=== PATIENT | male | born 1970 | race Caucasian/White ===

== ENCOUNTER → 2020-10-18 | Outpatient (CLI) | payer OTHER ==
--- NOTE | 2020-10-18 13:44 | KCIC ---
Exam Date: 10/18/2020 8:40 AM MRI LEFT UPPER EXTREMITY JOINT WITHOUT CONTRAST Indication: Reason: LEFT ELBOW PAIN / Spl. Instructions: / History: Posterior left elbow pain. Proba ble workout injury.. TECHNIQUE: Routine multiplanar MR imaging of the elbow was performed without contrast. FINDINGS: The radial and ulnar collateral ligaments are intact. The lateral ulnar collateral ligament is intact . The common extensor and common flexor tendons are within normal limits. The biceps and brachialis t endons are within normal limits. Triceps tendon is normal. There is nonspecific subcutaneous edema ov erlying the olecranon. No loculated collection is seen. Visualized articular cartilage is within normal limits. Visualized muscles demonstrate normal signal and bulk. Bone marrow demonstrates normal signal on all sequences without evidence of acute fracture . The ulnar nerve is visualized and demonstrates normal position, size and signal intensity. The radial and median nerves are partially seen and appear normal as well. IMPRESSION: Nonspecific subcutaneous edema overlying the olecranon. Infection is not excluded. No loculated colle ction is seen to suggest olecranon bursitis. Intact ligaments and tendons. No acute fracture. Electronically signed by: Javier Fields MD (10/18/2020 12:58 PM) [id number]
--- NOTE | 2020-10-18 13:44 | KCIC ---
Exam Date: 10/18/2020 8:40 AM MRI LEFT LOWER EXTREMITY JOINT WITHOUT Indication: Reason: LEFT KNEE PAIN / Spl. Instructions: / History: Pt is a runner. Progressing knee pain above patella, swelling after running. TECHNIQUE: Routine multiplanar MR imaging of the knee was performed without contrast. FINDINGS: Motion artifact limits evaluation. The medial and lateral menisci are intact and within normal limits for age. The anterior cruciate ligament, posterior cruciate ligament, medial collateral ligament, and lateral collateral ligament complex are intact. Patella regan is noted. Patellofemoral extensor mechanism and popliteus tendon are otherwise within normal limits. There is small focal full-thickness chondral fissuring along the trochlear sulcus with minimal subcho ndral degenerative marrow signal. Cartilage in the patellofemoral compartment is otherwise intact. Mi ld chondral thinning is seen in the medial and lateral compartments without full-thickness chondral l oss. Bone marrow demonstrates benign signal on all sequences. No acute fracture is seen. Physiologic joint fluid is present. There is no popliteal cyst. IMPRESSION: Intact menisci and ligaments. No acute fracture. Mild degenerative changes as described with mild ch ondral loss. Electronically signed by: Javier Fields MD (10/18/2020 1:14 PM) [id number]
== END ==
LOC: KCIC MRI 08:15
PROVIDERS: ATTEND Family Medicine
DX: M17.12 Unilateral primary osteoarthritis, left knee (principal); M25.522 Pain in left elbow
CPT/HCPCS: 73221; 73721